=== PATIENT | male | born 1955 ===

== ENCOUNTER 2025-08-26 09:00 | Inpatient (IN) | payer OTHER ==
[~2025-08-26] VITALS: Ht 175.3 cm; Wt 103.4 kg
[2025-08-26 11:07] LABS: BASO % 0.2 % (0.1-1.2); EOS # 0.08 (0.04-0.54); EOS % 0.7 % (0.7-7.0); LYMPH # 1.49 (1.18-3.74); LYMPH % 12.2 % (19.3-53.1); MEAN PLATELET VOLUME 9.20 fl (9.4-12.4); MONO # 0.69 (0.24-0.82); MONO % 5.6 % (4.7-12.5); NEUT # 9.88 (1.56-6.13); NEUT % 80.9 % (34.0-71.1); RED CELL DISTRIBUTION WIDTH 12.7 % (11.6-14.4)
[2025-08-26 11:19] LABS: URINE APPEARANCE Clear; URINE BILIRRUBIN Negative (NEGATIVE); URINE BLOOD Negative; URINE COLOR Yellow; URINE GLUCOSE Negative (NEGATIVE); URINE KETONE Negative (NEGATIVE); URINE LEUKOCYTE Negative; URINE NITRATE Negative; URINE PROTEIN Negative (NEGATIVE); URINE UROBILINOGEN 1.0 E.U./dl
[2025-08-26 11:23] LABS: URINE RBC 10.4 uL (0.0-20.8); URINE WBC 1.9 uL (0.0-23.2)
[2025-08-26 11:30] LABS: INR 1.04; URINE BACTERIA 2.3 uL (0.0-1933); URINE CAST 0.43 uL (0.0-1.40); URINE EPITHELIAL CELLS 1.0 uL (0.0-38.8)
[2025-08-26 12:21] LABS: ALT/SGPT 27.0 U/L (12-78); AST/SGOT 12.0 U/L (15-37); BILIRUBIN TOTAL 0.93 mg/dL (0.3-1.2); BUN CREA RATIO 13.0 (7.0-25.0); CREATININE SERUM 0.95 mg/dL (0.70-1.30); GFR 78.61; GLOBULINA 3.4 G/DL (2.4-3.5); GLUCOSE FASTING 112.0 mg/dL (65-100); OSMOLALITY SERUM 282.0 MOSM/KG (275-295)
[2025-08-26 14:26] VITALS: BP 145/88
[2025-08-26] MEDS ORDERED: COZAAR25 MG PO (14:27)
[2025-08-26] MEDS ORDERED: ECOTRIN81 MG PO (14:28)
[2025-08-26] MEDS ORDERED: PLAVIX75 MG PO (14:28)
[2025-08-26] MEDS ORDERED: NEURONTIN600 M1 PO (14:29)
[2025-08-26] MEDS ORDERED: ALDACTONE25 MG PO (14:29)
[2025-08-26] MEDS ORDERED: TOPROL XL25 M1 PO (14:30)
[2025-08-26] MEDS ORDERED: METFORMIN HCL500 M3 PO (14:30)
[2025-09-03] MEDS ORDERED: METRONIDAZOLE/SODIUM CHLORIDE 500 MG/100 ML PIGGYBACK IV ONE ×2 (11:33→11:38)
[2025-09-03] MEDS ORDERED: DIBUCAINE 30 GM TUBE ONE (15:17)
[2025-09-03] MEDS ORDERED: HEMOSTATIC MATRIX 1 KIT KIT TOP ONE (15:18)
[2025-09-03] MEDS ORDERED: POVIDONE-IODINE 118 ML BOTT TOP ONE (15:18)
[2025-09-03] MEDS ORDERED: LIDOCAINE HCL 1%/EPINEPHRINE 20ML VIAL IJ ONE (15:18)
[2025-09-03] MEDS ORDERED: BUPIVACAINE HCL/Mpf 0.5% 10ML VIAL ONE (15:18)
[2025-09-03] MEDS ORDERED: SUGAMMADEX SODIUM 200 MG/2 ML VIAL IV ONE ×2 (16:53→16:57)
[2025-09-03] MEDS ORDERED: levoFLOXacin IN DEXTROSE 5 % 5 MG/ML PIGGYBAG IV ONE (17:15)
[2025-09-03] MEDS ORDERED: DEXTROSE 50 % IN WATER 0.5 G/ML DISP.SYRIN IV PRN (18:15)
[2025-09-03] MEDS ORDERED: MORPHINE SULFATE 4 MG/ML VIAL IV PRN (18:15)
[2025-09-03] MEDS ORDERED: RINGERS SOLUTION,LACTATED 1,000 ML IV SCH (18:15)
[2025-09-03] MEDS ORDERED: ONDANSETRON HCL 2 MG/ML VIAL IV PRN (18:15)
[2025-09-03 19:42] LABS: BASO % 0.2 % (0.1-1.2); EOS # 0.02 (0.04-0.54); EOS % 0.2 % (0.7-7.0); LYMPH # 0.90 (1.18-3.74); LYMPH % 10.1 % (19.3-53.1); MEAN PLATELET VOLUME 9.50 fl (9.4-12.4); MONO # 0.61 (0.24-0.82); MONO % 6.9 % (4.7-12.5); NEUT # 7.32 (1.56-6.13); NEUT % 82.3 % (34.0-71.1); RED CELL DISTRIBUTION WIDTH 12.9 % (11.6-14.4)
[2025-09-03] MEDS ORDERED: ACETAMINOPHEN 500 MG GEL..CAP PO SCH (20:00)
[2025-09-03 20:09] LABS: BUN CREA RATIO 13.0 (7.0-25.0); CREATININE SERUM 0.88 mg/dL (0.70-1.30); GFR 85.86; GLUCOSE FASTING 112.0 mg/dL (65-100); OSMOLALITY SERUM 281.0 MOSM/KG (275-295)
[2025-09-03] MEDS ORDERED: FAMOTIDINE/PF 20 MG/2 ML VIAL IV PUSH SCH (21:00)
[2025-09-04 00:21] VITALS: BP 100/57; O2SAT 97
[2025-09-04 07:52] LABS: BASO % 0.3 % (0.1-1.2); EOS # 0.04 (0.04-0.54); EOS % 0.4 % (0.7-7.0); LYMPH # 1.28 (1.18-3.74); LYMPH % 14.3 % (19.3-53.1); MEAN PLATELET VOLUME 9.70 fl (9.4-12.4); MONO # 0.78 (0.24-0.82); MONO % 8.7 % (4.7-12.5); NEUT # 6.81 (1.56-6.13); NEUT % 76.0 % (34.0-71.1); RED CELL DISTRIBUTION WIDTH 12.9 % (11.6-14.4)
[2025-09-04 07:58] LABS: BUN CREA RATIO 12.0 (7.0-25.0); CREATININE SERUM 0.95 mg/dL (0.70-1.30); GFR 78.61; GLUCOSE FASTING 105.0 mg/dL (65-100); OSMOLALITY SERUM 285.0 MOSM/KG (275-295)
[2025-09-04 09:21] VITALS: BP 129/79; O2SAT 97
[2025-09-04] MEDS ORDERED: BACTRIM DS TAB1 EACH PO (13:19)
[2025-09-05] MEDS ORDERED: ENOXAPARIN SODIUM 40 MG/0.4 ML SYRINGE SUBCUTANEO SCH ×2 (09:00→17:00)
== END 2025-09-04 14:50 | disposition home or self-care (01) | DRG 349 ==
LOC: SURH 09-03 09:00 → SURG 09-03 21:23
PROVIDERS: ADMIT Surgery; ATTEND Surgery
PROC: 0DBP7ZZ Excision of Rectum, Via Natural or Artificial Opening (ICD-10-PCS; principal; 2025-09-03 14:45)
DX: D12.8 Benign neoplasm of rectum (principal); K62.82 Dysplasia of anus